=== PATIENT | female | born 1970 | race African-American/Black ===

== ENCOUNTER 2018-10-14 09:32 | Emergency (ER) | payer MEDICAID ==
--- NOTE | 2018-10-14 10:14 | ER Document Report ---
ED Medical Screen (RME) - General Chief Complaint: Skin Problem Stated Complaint: SKIN ISSUE Time Seen by Provider: 10/14/18 10:10 Notes: Patient is a 48-year-old female that presents to the emergency department for chief complaint of rash in the groin, for almost 6 months. ROS: Other than noted above, the 12 point review of systems was reviewed with the patient and were negative, all pertinent findings are included in the HPI. PHYSICAL EXAMINATION: Vital signs reviewed. GENERAL: Well-appearing, well-nourished and in no acute distress. HEAD: Atraumatic, normocephalic. EYES: Pupils equal round extraocular movements intact, conjunctiva are normal. ENT: Nares patent NECK: Normal range of motion CV: Heart regular rate and rhythm LUNGS: No respiratory distress Musculoskeletal: Normal range of motion NEUROLOGICAL: Normal speech PSYCH: Normal mood, normal affect. MDM: Patient seen and examined for rapid initial assessment. Vital signs reviewed. A comprehensive ED assessment and evaluation of the patient, analysis of test results and completion of the medical decision making process will be conducted by additional ED providers. *Note is created using voice recognition software and may contain spelling, syntax or grammatical errors. TRAVEL OUTSIDE OF THE [place] IN LAST 30 DAYS: No - Related Data Allergies/Adverse Reactions: amoxicillin [Amoxicillin] Allergy (Unknown, Verified 10/14/18 09:43) Past Medical History - Past Medical History Cardiac Medical History: Reports: Hx Hypercholesterolemia, Hx Hypertension Neurological Medical History: Denies: Hx Seizures Endocrine Medical History: Reports: Hx Diabetes Mellitus Type 1, Hx Diabetes Mellitus Type 2 Past Surgical History: Reports: Hx Section - x2. Denies: Hx Hysterectomy - Immunizations Immunizations up to date: Yes Hx Diphtheria, Pertussis, Tetanus Vaccination: Yes Physical Exam - Vital signs Vitals: Temp Pulse Resp BP Pulse Ox 98.3 F 95 18 213/83 H 99 10/14/18 09:58 10/14/18 09:58 10/14/18 09:58 10/14/18 09:58 10/14/18 09:58 Course - Vital Signs Vital signs: Temp Pulse Resp BP Pulse Ox 98.3 F 95 18 213/83 H 99 10/14/18 09:58 10/14/18 09:58 10/14/18 09:58 10/14/18 09:58 10/14/18 09:58 Doctor's Discharge - Discharge Referrals: LAZRAA ARORA MD [Primary Care Provider] - Follow up as needed
[2018-10-14] MEDS ORDERED: METFORMIN HCL 500 MG TABLET PO ONE (11:38)
[2018-10-14] MEDS ORDERED: NYSTATIN CREAM 15 GM TP ONE (11:38)
[2018-10-14] MEDS ORDERED: AMLODIPINE BESYLATE 10 MG TABLET PO ONE (11:38)
[2018-10-14] MEDS ORDERED: FLUCONAZOLE 100 MG TABLET PO ONE (11:38)
[2018-10-14] MEDS ORDERED: GLIPIZIDE 10 MG TABLET PO ONE (11:39)
--- NOTE | 2018-10-14 12:17 | ER Document Report ---
ED General - General Chief Complaint: Skin Problem Stated Complaint: SKIN ISSUE Time Seen by Provider: 10/14/18 10:10 TRAVEL OUTSIDE OF THE [place] IN LAST 30 DAYS: No - HPI Patient complains to provider of: Rash in the perineal region Notes: Patient coming in for evaluation of rash. Patient states ongoing for greater than a week. Patient states she has tried antifungal creams along with Diflucan along with now placing hydrocortisone cream in the area. Patient states rash involves her anus and also her labia. Patient is diabetic and also has a history of hypertension. Patient relates that she is not taking any of her medications in the last 6 months. Patient otherwise looks to be in no obvious distress upon my evaluation denies any fevers chills nausea vomiting diarrhea denies any vaginal discharge states vaginal burning with urination however no true dysuria. - Related Data Allergies/Adverse Reactions: amoxicillin [Amoxicillin] Allergy (Unknown, Verified 10/14/18 09:43) Past Medical History - Social History Smoking Status: Never Smoker Frequency of alcohol use: None Drug Abuse: None Family History: Hypertension Patient has suicidal ideation: No Patient has homicidal ideation: No - Past Medical History Cardiac Medical History: Reports: Hx Hypercholesterolemia, Hx Hypertension Neurological Medical History: Denies: Hx Seizures Endocrine Medical History: Reports: Hx Diabetes Mellitus Type 1, Hx Diabetes Mellitus Type 2 Renal/ Medical History: Denies: Hx Peritoneal Dialysis Past Surgical History: Reports: Hx Section - x2, Hx Cholecystectomy. Denies: Hx Hysterectomy - Immunizations Immunizations up to date: Yes Hx Diphtheria, Pertussis, Tetanus Vaccination: Yes Hx Pneumococcal Vaccination: 07/23/11 Review of Systems - Review of Systems Constitutional: No symptoms reported EENT: No symptoms reported Cardiovascular: No symptoms reported Respiratory: No symptoms reported Gastrointestinal: No symptoms reported Genitourinary: No symptoms reported Female Genitourinary: Other - Rash Musculoskeletal: No symptoms reported Skin: No symptoms reported Hematologic/Lymphatic: No symptoms reported Neurological/Psychological: No symptoms reported Physical Exam - Vital signs Vitals: Temp Pulse Resp BP Pulse Ox 98.3 F 95 18 213/83 H 99 10/14/18 09:58 10/14/18 09:58 10/14/18 09:58 10/14/18 09:58 10/14/18 09:58 Interpretation: Normal - General General appearance: Appears well, Alert - HEENT Head: Normocephalic, Atraumatic Eyes: Normal Pupils: PERRL - Respiratory Respiratory status: No respiratory distress Chest status: Nontender Breath sounds: Normal Chest palpation: Normal - Cardiovascular Rhythm: Regular Heart sounds: Normal auscultation Murmur: No - Abdominal Inspection: Normal Distension: No distension Bowel sounds: Normal Tenderness: Nontender Organomegaly: No organomegaly - Genitourinary Notes: Your CT scan at this time shows signs consistent with a viral gastroenteritis. There is some concerns that may be some inflammation of your appendicitis however your physical examination laboratory studies do not examination. No region shows erythematous labia bilaterally with erythematous rash with satellite lesions consistent with a yeast infection. Along the bilateral labial folds there is some tissue breakdown excoriations examination of the rectal area as well reveals the same rash again with some tissue breakdown excoriations. - Back Back: Normal, Nontender - Extremities General upper extremity: Normal inspection, Nontender, Normal color, Normal ROM , Normal temperature General lower extremity: Normal inspection, Nontender, Normal color, Normal ROM , Normal temperature, Normal weight bearing. No: Kellie's sign - Neurological Neuro grossly intact: Yes Cognition: Normal Orientation: AAOx4 Nino Coma Scale Eye Opening: Spontaneous Nino Coma Scale Verbal: Oriented Sterling Coma Scale Motor: Obeys Commands Sterling Coma Scale Total: 15 Speech: Normal Motor strength normal: LUE, RUE, LLE, RLE Sensory: Normal - Psychological Associated symptoms: Normal affect, Normal mood - Skin Skin Temperature: Warm Skin Moisture: Dry Skin Color: Normal Course - Re-evaluation Re-evalutation: 10/14/18 15:38 Evaluation of the patient reveals significant yeast infection of the perineal region. Explained to the patient that recommend antifungal pill Diflucan at this time along with application of nystatin powder. Recommended whenever not using the powder especially at nighttime when the patient is sleeping on her blankets and more likely sweating to apply a barrier cream such as Desitin or a &d to the area to help out with healing. Prescription for the patient to have a second Diflucan approximately 1 week was given to the patient. Patient also started any of her diabetic medications also is not on any of her antihypertensive medications. Patient unclear of what medication she was on stating glipizide metformin amlodipine and possibly labetalol however unclear of the dosage amount. Patient pharmacy really was contacted stated patient was on metformin 500 mg twice daily amlodipine 10 mg daily did not have a prescription for labetalol did not have a prescription for glipizide. At this time I do believe he will be safe that the patient on metformin and glipizide 5 mg 500 mg metformin. We will go ahead with amlodipine 10 mg taken daily. I have recommended patient follow-up primary care physician patient's information was given to our social work team to help establish follow-up care. - Vital Signs Vital signs: Temp Pulse Resp BP Pulse Ox 97.7 F 92 20 175/112 H 99 10/14/18 13:06 10/14/18 13:06 10/14/18 13:06 10/14/18 13:06 10/14/18 13:06 - Laboratory Laboratory results interpreted by me: 10/14/18 12:08 POC Glucose 207 H Discharge - Discharge Condition: Fair Disposition: HOME, SELF-CARE Instructions: Diabetes ([facility]), High Blood Pressure, Requiring Treatment ([facility]), Vaginal Yeast Infection ([facility]) Additional Instructions: Your evaluation today shows signs of yeast infection. No reason. I have recommend he continue with the nystatin powder at least 2 times a day. At nighttime however recommend a barrier cream such as a and D or Desitin. We gave you a dose of Diflucan today to help out with a yeast infection take the second tablet as directed on the . I would highly recommend to continue with the amlodipine for your blood pressure. I would also highly recommend continue with the metformin and glipizide for your diabetes. Please return to the ER if symptoms worsen I will highly recommend following up with your primary care physician. I would also give your information to our older adult social work specialist to help establish primary care. Prescriptions: Amlodipine Besylate [Norvasc 10 mg Tablet] 10 mg PO DAILY #30 tablet Fluconazole [Diflucan] 200 mg PO ONCE PRN #1 tablet PRN Reason: Glipizide [Glucotrol] 5 mg PO BID #60 tablet Metformin HCl [Glucophage 500 mg Tablet] 500 mg PO BID #60 tablet Nystatin [Mycostatin Topical Powder 15 gm] 1 applic TP BID #1 bottle Referrals: LAZARA ARORA MD [Primary Care Provider] - Follow up as needed
[2018-10-14 13:16] VITALS: BP 175/112
== END 2018-10-14 13:06 | disposition home or self-care (01) ==
LOC: ER 09:32
DX: B37.9 Candidiasis, unspecified (principal); E13.9 Other specified diabetes mellitus without complications; T38.3X6A Underdosing of insulin and oral hypoglycemic [antidiabetic] drugs, initial encounter; I10 Essential (primary) hypertension; T46.1X6A Underdosing of calcium-channel blockers, initial encounter; Z91.14 Patient's other noncompliance with medication regimen; Z21 Asymptomatic human immunodeficiency virus [HIV] infection status; Z88.0 Allergy status to penicillin
CPT/HCPCS: 99283; 82962; J3490 ×4

== ENCOUNTER 2019-09-29 13:26 | Emergency (ER) | payer MEDICAID, OTHER ==
[2019-09-29 13:39] VITALS: BP 189/98
--- NOTE | 2019-09-29 13:46 | ER Document Report ---
ED Medical Screen (RME) - General Stated Complaint: LEG PAIN, SWELLING Time Seen by Provider: 09/29/19 13:30 Primary Care Provider: LAZARA ARORA MD [Primary Care Provider] - Follow up as needed Mode of Arrival: Ambulatory Information source: Patient Notes: This 49-year-old female with history of diabetes and high blood pressure presents emergency department with complaints of bilateral lower leg swelling for the past month. She reports today her legs are throbbing. Denies trauma. Denies recent long trip. 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 She also reports that she is been to her provider Dr. Jenkins twice for the same symptoms. She came here today because her legs are throbbing. I have greeted and performed a rapid initial assessment of this patient. A comprehensive ED assessment and evaluation of the patient, analysis of test results and completion of the medical decision making process will be conducted by additional ED providers. Dictation of this chart was performed using voice recognition software; therefore, there may be some unintended grammatical errors. TRAVEL OUTSIDE OF THE [place] IN LAST 30 DAYS: No - Related Data Allergies/Adverse Reactions: amoxicillin [Amoxicillin] Allergy (Unknown, Verified 10/14/18 09:43) Past Medical History - Past Medical History Cardiac Medical History: Reports: Hx Hypercholesterolemia, Hx Hypertension Neurological Medical History: Denies: Hx Seizures Endocrine Medical History: Reports: Hx Diabetes Mellitus Type 1, Hx Diabetes Mellitus Type 2 Renal/ Medical History: Denies: Hx Peritoneal Dialysis Past Surgical History: Reports: Hx Section - x2, Hx Cholecystectomy. Denies: Hx Hysterectomy - Immunizations Immunizations up to date: Yes Hx Diphtheria, Pertussis, Tetanus Vaccination: Yes Physical Exam - Vital signs Vitals: Temp Pulse Resp BP Pulse Ox 98.0 F 93 16 189/98 H 100 09/29/19 13:35 09/29/19 13:35 09/29/19 13:35 09/29/19 13:35 09/29/19 13:35 Course - Vital Signs Vital signs: Temp Pulse Resp BP Pulse Ox 98.0 F 93 16 189/98 H 100 09/29/19 13:35 09/29/19 13:35 09/29/19 13:35 09/29/19 13:35 09/29/19 13:35 Doctor's Discharge - Discharge Referrals: LAZARA ARORA MD [Primary Care Provider] - Follow up as needed
--- NOTE | 2019-09-29 14:05 | ER Document Report ---
ED General - General Chief Complaint: Leg Swelling Stated Complaint: LEG PAIN, SWELLING Time Seen by Provider: 09/29/19 13:30 Primary Care Provider: LAZARA ARORA MD [ACTIVE STAFF] - Follow up as needed Mode of Arrival: Ambulatory TRAVEL OUTSIDE OF THE [place] IN LAST 30 DAYS: No - HPI Notes: Patient is a 49-year-old female with history of hypertension, diabetes type 2, hyperlipidemia, obesity who presents complaining of ongoing bilateral lower leg swelling over the past month. Patient states that she has been seen by her family doctor twice for this issue and had an echocardiogram which was unremarkable. Patient states that she has not had any acute changes in her swelling. They have increased her Lasix to 40 mg once daily. Patient states even at this dose she does not urinate that often. She is able to eat and drink without difficulty. She is having normal bowel movements. No other injury, insect bite, or noted infection. Denies any prolonged immobilization, distance travel, recent surgery/trauma, personal cancer history, hormone use, smoking, or previous DVT/PE. Denies any headache, fever, neck pain, URI, sore throat, chest pain, palpitations, syncope, cough, shortness of breath, wheeze, dyspnea, abdominal pain, nausea/vomiting/diarrhea, urinary retention, dysuria, hematuria, loss of control of bowel or bladder, numbness/tingling, saddle anesthesia, muscle paralysis/weakness, or rash. - Related Data Allergies/Adverse Reactions: amoxicillin [Amoxicillin] Allergy (Unknown, Verified 09/29/19 13:46) Home Medications: lasix. lisinopril. amolidpine. januvia. lantus. gabapentin. lipitor. glipizide Past Medical History - General Information source: Patient - Social History Smoking Status: Unknown if Ever Smoked Chew tobacco use (# tins/day): No Frequency of alcohol use: Social Drug Abuse: None Family History: Hypertension Patient has suicidal ideation: No Patient has homicidal ideation: No - Past Medical History Cardiac Medical History: Reports: Hx Hypercholesterolemia, Hx Hypertension Neurological Medical History: Denies: Hx Seizures Endocrine Medical History: Reports: Hx Diabetes Mellitus Type 1, Hx Diabetes Mellitus Type 2 Renal/ Medical History: Denies: Hx Peritoneal Dialysis Past Surgical History: Reports: Hx Section - x2, Hx Cholecystectomy. Denies: Hx Hysterectomy - Immunizations Immunizations up to date: Yes Hx Diphtheria, Pertussis, Tetanus Vaccination: Yes Hx Pneumococcal Vaccination: 07/23/11 Review of Systems - Review of Systems -: Yes All other systems reviewed and negative Physical Exam - Vital signs Vitals: Temp Pulse Resp BP Pulse Ox 98.0 F 93 16 189/98 H 100 09/29/19 13:35 09/29/19 13:35 09/29/19 13:35 09/29/19 13:35 09/29/19 13:35 - Notes Notes: PHYSICAL EXAMINATION: GENERAL: Well-appearing, well-nourished and in no acute distress. HEAD: Atraumatic, normocephalic. EYES: Pupils equal round and reactive to light, extraocular movements intact, sclera anicteric, conjunctiva are normal. ENT: Nares patent and without discharge. oropharynx clear without exudates. No tonsilar hypertrophy or erythema. Moist mucous membranes. NECK: Normal range of motion, supple without lymphadenopathy LUNGS: Breath sounds clear to auscultation bilaterally and equal. No wheezes rales or rhonchi. HEART: Regular rate and rhythm without murmurs, rubs, gallops. ABDOMEN: Soft, nontender, nondistended abdomen. No guarding, no rebound. Normal bowel sounds present. No CVA tenderness bilaterally. Musculoskeletal: FROM to passive/active. Strength 5+/5. Kellie neg. No asymmetry to LE's. Extremities: 1-2+ pitting edema b/l LE's. No LE asymmetry or calf tenderness. Peripheral pulses 2+. Capillary refill less than 3 seconds. NEUROLOGICAL: Normal speech, normal gait. PSYCH: Normal mood, normal affect. SKIN: Warm, Dry, normal turgor, no rashes or lesions noted. Course - Re-evaluation Re-evalutation: 09/29/19 15:53 Patient is an afebrile, well-hydrated, 49-year-old female who presents to the ED with b/l LE edema, suspect benign at this time. Vitals are acceptable without any significant tachycardia, tachypnea, or hypoxia. PE is otherwise unremarkable for any neurovascular compromise, obvious tendon/ligament rupture, obvious fracture/dislocation, septic joint. Labs and CXR unremarkable. Patient is nontoxic-appearing. Patient is able to ambulate and weight-bear. No other labs or imaging warranted at this time based on H&P. Pt to take her lasix 40mg twice daily for 3 days. Compression stockings placed today. Conservative measures otherwise for symptoms. Recheck with your PCM in 3-5 days. Return to the ED with any worsening/concerning symptoms otherwise as reviewed in discharge. Patient is in agreement. - Vital Signs Vital signs: Temp Pulse Resp BP Pulse Ox 98.0 F 93 16 189/98 H 100 09/29/19 13:35 09/29/19 13:35 09/29/19 13:35 09/29/19 13:35 09/29/19 13:35 - Laboratory Result Diagrams: 09/29/19 14:10 09/29/19 14:10 Laboratory results interpreted by me: 09/29/19 09/29/19 09/29/19 14:10 14:10 14:10 Hgb 10.7 L Hct 32.9 L MCH 26.2 L RDW 15.5 H Glucose 285 H Alkaline Phosphatase 138 H NT-Pro-B Natriuret Pep 152 H Urine Protein Urine Glucose (UA) Ur Leukocyte Esterase 09/29/19 14:10 Hgb Hct MCH RDW Glucose Alkaline Phosphatase NT-Pro-B Natriuret Pep Urine Protein >=500 H Urine Glucose (UA) 1000 H Ur Leukocyte Esterase LARGE H Discharge - Discharge Clinical Impression: Bilateral lower extremity edema Condition: Stable Disposition: HOME, SELF-CARE Additional Instructions: Take your Lasix twice daily for 3 days as directed- watch blood pressure, then return to once daily. Rest, Ice, Compression, Elevation Tylenol/ibuprofen as needed Compression stockings Light stretches daily Strength exercises as able F/u with your PCP in 3-5 days for a recheck Return to the ED with any worsening symptoms and/or development of fever, headache, chest pain, palpitations, syncope, shortness of breath, trouble breathing, abdominal pain, n/v/d, muscle weakness/paralysis, numbness/tingling, swelling, redness, or other worsening symptoms that are concerning to you. Forms: Elevated Blood Pressure, Return to Work Referrals: LAZARA ARORA MD [ACTIVE STAFF] - Follow up in 3-5 days
[2019-09-29 14:37] LABS: ABSOLUTE BASOPHILS # (AUTO) 0.1 10^3/uL (0.0-0.2); ABSOLUTE EOSINOPHILS # (AUTO) 0.1 10^3/uL (0.0-0.6); ABSOLUTE LYMPHOCYTES (AUTO) 1.7 10^3/uL (0.5-4.7); ABSOLUTE MONOCYTES (AUTO) 0.6 10^3/uL (0.1-1.4); ABSOLUTE NEUT (AUTO) 6.5 10^3/uL (1.7-8.2); BASOPHILS % (AUTO) 0.7 % (0-2); EOSINOPHILS % (AUTO) 1.2 % (0-6); HEMATOCRIT 32.9 % (36.0-47.0); HEMOGLOBIN 10.7 g/dL (12.0-15.5); LYMPHOCYTES % (AUTO) 18.6 % (13-45); MEAN CORPUSCULAR HEMOGLOBIN 26.2 pg (27.0-33.4); MEAN CORPUSCULAR HGB CONC 32.7 g/dL (32.0-36.0); MEAN CORPUSCULAR VOLUME 80 fl (80-97); MONOCYTES % (AUTO) 6.8 % (3-13); PLATELET COUNT 363 10^3/uL (150-450); RED BLOOD COUNT 4.11 10^6/uL (3.72-5.28); RED CELL DISTRIBUTION WIDTH 15.5 % (11.5-14.0); SEGMENTED NEUTROPHILS % (AUTO) 72.7 % (42-78); TOTAL CELLS COUNTED % (AUTO) 100 %
[2019-09-29 14:40] LABS: APPEARANCE,URINE CLEAR; BILIRUBIN,URINE NEGATIVE (NEGATIVE); COLOR,URINE LIGHT YELLOW; GLUCOSE, URINE 1000 mg/dL (NEGATIVE); KETONES,URINE NEGATIVE (NEGATIVE); NITRITE,URINE NEGATIVE (NEGATIVE); PROTEIN,URINE >=500 mg/dL (NEGATIVE); UROBILINOGEN,URINE NEGATIVE mg/dL (<2.0)
[2019-09-29 14:41] LABS: ADD MANUAL MICROSCOPIC YES; LEUKOCYTE ESTERASE,URINE LARGE (NEGATIVE)
[2019-09-29 14:43] LABS: URINE SPECIFIC GRAVITY 1.021
[2019-09-29 14:49] LABS: ALBUMIN 3.6 g/dL (3.5-5.0); ALKALINE PHOSPHATASE 138 U/L (38-126); ANION GAP 9 (5-19); ASPARTATE AMINO TRANSFERASE 15 U/L (14-36); BILIRUBIN,DIRECT 0.1 mg/dL (0.0-0.4); BILIRUBIN,TOTAL 0.2 mg/dL (0.2-1.3); BLOOD UREA NITROGEN 15 mg/dL (7-20); CALCIUM 9.2 mg/dL (8.4-10.2); CARBON DIOXIDE 25 mmol/L (22-30); CHLORIDE 106 mmol/L (98-107); GLUCOSE 285 mg/dL (75-110); POTASSIUM 3.9 mmol/L (3.6-5.0)
[2019-09-29 14:54] LABS: BACTERIA,URINE 3+ /HPF
--- NOTE | 2019-09-29 15:19 | RADIOLOGY REPORT (SQ) ---
EXAM DESCRIPTION: CHEST SINGLE VIEW COMPLETED DATE/TIME: 09/29/2019 3:00 pm REASON FOR STUDY: LE swelling COMPARISON: AP view of the chest from 01/09/2016. EXAM PARAMETERS: NUMBER OF VIEWS: One view. TECHNIQUE: Single frontal radiographic view of the chest acquired. RADIATION DOSE: NA LIMITATIONS: None. FINDINGS: LUNGS AND PLEURA: No consolidation, pleural effusion or pneumothorax. MEDIASTINUM AND HILAR STRUCTURES: Stable mediastinal and hilar contours. HEART AND VASCULAR STRUCTURES: Stable cardiomegaly. The pulmonary vasculature is within normal limit s given the low inspiratory lung volumes. BONES: No acute findings. HARDWARE: None in the chest. OTHER: No other finding. IMPRESSION: Cardiomegaly and low inspiratory lung volumes without a superimposed acute cardiopulmona ry process. TECHNICAL DOCUMENTATION: JOB ID: [id number] [employer]- All Rights Reserved Reading location - IP/workstation name: [email or web address]
== END 2019-09-29 16:45 | disposition home or self-care (01) ==
LOC: ER 13:26
DX: R60.9 Edema, unspecified (principal); E78.00 Pure hypercholesterolemia, unspecified; I10 Essential (primary) hypertension; E11.9 Type 2 diabetes mellitus without complications; Z90.49 Acquired absence of other specified parts of digestive tract; Z88.0 Allergy status to penicillin
CPT/HCPCS: 36415; 71045; 80053; 81001; 83880; 85025; 87086; 99284

== ENCOUNTER → 2019-10-16 | Outpatient (CLI) | payer OTHER ==
[2019-10-16 12:09] LABS: ABSOLUTE BASOPHILS # (AUTO) 0.1 10^3/uL (0.0-0.2); ABSOLUTE EOSINOPHILS # (AUTO) 0.1 10^3/uL (0.0-0.6); ABSOLUTE LYMPHOCYTES (AUTO) 2.1 10^3/uL (0.5-4.7); ABSOLUTE MONOCYTES (AUTO) 0.6 10^3/uL (0.1-1.4); ABSOLUTE NEUT (AUTO) 7.4 10^3/uL (1.7-8.2); BASOPHILS % (AUTO) 0.5 % (0-2); EOSINOPHILS % (AUTO) 1.4 % (0-6); HEMATOCRIT 33.1 % (36.0-47.0); HEMOGLOBIN 11.1 g/dL (12.0-15.5); LYMPHOCYTES % (AUTO) 20.6 % (13-45); MEAN CORPUSCULAR HEMOGLOBIN 26.8 pg (27.0-33.4); MEAN CORPUSCULAR HGB CONC 33.5 g/dL (32.0-36.0); MEAN CORPUSCULAR VOLUME 80 fl (80-97); MONOCYTES % (AUTO) 5.6 % (3-13); PLATELET COUNT 330 10^3/uL (150-450); RED BLOOD COUNT 4.14 10^6/uL (3.72-5.28); RED CELL DISTRIBUTION WIDTH 15.3 % (11.5-14.0); SEGMENTED NEUTROPHILS % (AUTO) 71.9 % (42-78); TOTAL CELLS COUNTED % (AUTO) 100 %; WHITE BLOOD COUNT 10.3 10^3/uL (4.0-10.5)
[2019-10-16 12:37] LABS: ALBUMIN 3.9 g/dL (3.5-5.0); ALKALINE PHOSPHATASE 131 U/L (38-126); ANION GAP 12 (5-19); ASPARTATE AMINO TRANSFERASE 19 U/L (14-36); BILIRUBIN,DIRECT 0.1 mg/dL (0.0-0.4); BILIRUBIN,TOTAL 0.4 mg/dL (0.2-1.3); BLOOD UREA NITROGEN 10 mg/dL (7-20); CALCIUM 9.5 mg/dL (8.4-10.2); CARBON DIOXIDE 28 mmol/L (22-30); CHLORIDE 102 mmol/L (98-107); GLUCOSE 163 mg/dL (75-110); POTASSIUM 3.3 mmol/L (3.6-5.0); TOTAL PROTEIN 7.6 g/dL (6.3-8.2)
--- NOTE | 2019-10-16 12:50 | RADIOLOGY REPORT (SQ) ---
EXAM DESCRIPTION: CHEST SINGLE VIEW COMPLETED DATE/TIME: 10/16/2019 11:37 am REASON FOR STUDY: MORBID (SEVERE) OBESITY DUE TO EXCESS CALORIES COMPARISON: None. EXAM PARAMETERS: NUMBER OF VIEWS: One view. TECHNIQUE: Single frontal radiographic view of the chest acquired. RADIATION DOSE: NA LIMITATIONS: None. FINDINGS: LUNGS AND PLEURA: No opacities, masses or pneumothorax. No pleural effusion. MEDIASTINUM AND HILAR STRUCTURES: No masses. Contour normal. HEART AND VASCULAR STRUCTURES: Heart normal in size. Normal vasculature. BONES: No acute findings. HARDWARE: None in the chest. OTHER: No other significant finding. IMPRESSION: NO ACUTE RADIOGRAPHIC FINDING IN THE CHEST. TECHNICAL DOCUMENTATION: JOB ID: [id number] [employer]- All Rights Reserved Reading location - IP/workstation name: [email or web address]
--- NOTE | 2019-10-17 11:46 | EKG REPORT ---
SEVERITY:- OTHERWISE NORMAL ECG - SINUS RHYTHM BORDERLINE LEFT AXIS DEVIATION : Confirmed by: Pooja Holman MD 17-Oct-2019 11:45:48
== END ==
LOC: OD 11:07
PROVIDERS: ATTEND Surgery
DX: E66.01 Morbid (severe) obesity due to excess calories (principal)
CPT/HCPCS: 36415; 71045; 80053; 84443; 85025; 93005; 93010